=== PATIENT | male | born 1965 | race African-American/Black ===

== ENCOUNTER 2016-11-14 15:41 | Outpatient (CLI) ==
[2015-07-15 16:57] VITALS: BMI 31.9
== END 2016-11-14 15:42 | disposition home or self-care (01) ==
LOC: LAB 15:41
PROVIDERS: ATTEND Emergency Medicine
DX: E11.9 Type 2 diabetes mellitus without complications (principal)
CPT/HCPCS: 36415; 83036

== ENCOUNTER 2017-02-01 14:36 | Outpatient (CLI) ==
[2015-07-15 16:57] VITALS: BMI 31.9
[2017-02-01 15:00] LABS: BASOPHILS # (AUTO) 0.1 K/uL (0-0.2); BASOPHILS % (AUTO) 1.1 % (0.0-3.0); EOSINOPHILS # (AUTO) 0.3 K/ul (0.0-0.7); EOSINOPHILS % (AUTO) 4.4 % (0.0-7.0); HEMATOCRIT 35.5 % (42.0-52.0); HEMOGLOBIN 12.6 g/dl (14.0-18.0); IMMATURE GRANULOCYTE % (AUTO) 0.2 % (0.0-5.0); LYMPHOCYTES # (AUTO) 2.2 K/uL (0.60-3.4); LYMPHOCYTES % (AUTO) 38.1 (10.0-50.0); MEAN CORPUSCULAR HEMOGLOBIN 30.7 pg (27.0-31.0); MEAN CORPUSCULAR HGB CONC 35.5 (31.8-35.4); MEAN CORPUSCULAR VOLUME 86.6 fl (80.0-94.0); MONOCYTES # (AUTO) 0.5 K/uL (0.4-2.0); MONOCYTES % (AUTO) 9.3 (0-10); NEUTROPHILS # (AUTO) 2.7 K/ul (2.0-6.9); NEUTROPHILS % (AUTO) 46.9; PLATELET COUNT 235 10^3/uL (140-440)
[2017-02-01 15:37] LABS: ALBUMIN 3.4 g/dL (3.4-5.0); ALBUMIN/GLOBULIN RATIO 1.03; ANION GAP 12.3; BILIRUBIN,TOTAL 0.25 mg/dL (0.00-1.20); BUN/CREATININE RATIO 7.69; CALCIUM 8.9 mg/dL (8.2-10.2); CREATININE 1.69 mg/dL (0.60-1.10); POTASSIUM 3.3 mmol/L (3.5-5.1); TOTAL PROTEIN 6.7 g/dL (6.4-8.2)
== END 2017-02-01 14:37 | disposition home or self-care (01) ==
LOC: LAB 14:36
PROVIDERS: ATTEND Nurse Practitioner Family
DX: I10 Essential (primary) hypertension (principal); E78.5 Hyperlipidemia, unspecified; E11.9 Type 2 diabetes mellitus without complications; F41.9 Anxiety disorder, unspecified
CPT/HCPCS: 36415; 80053; 80061; 83036; 84443; 85025

== ENCOUNTER 2017-02-07 11:50 | Outpatient (CLI) ==
[2015-07-15 16:57] VITALS: BMI 31.9
== END 2017-02-07 11:51 | disposition home or self-care (01) ==
LOC: LAB 11:50
PROVIDERS: ATTEND Emergency Medicine
DX: E53.8 Deficiency of other specified B group vitamins (principal)
CPT/HCPCS: 36415; 82607

== ENCOUNTER 2017-02-23 15:58 | Outpatient (CLI) ==
[2015-07-15 16:57] VITALS: BMI 31.9
[2017-02-23 16:12] LABS: BILIRUBIN,URINE 1+ (NEGATIVE); KETONES,URINE Trace (NEGATIVE); LEUKOCYTE ESTERASE ,URINE Negative (NEGATIVE); NITRITE,URINE Negative (NEGATIVE); PH,URINE 6.5 (5-9); PROTEIN,URINE 1+ (NEGATIVE); URINE, BLOOD Negative (NEGATIVE)
[2017-02-23 16:41] LABS: ADD URINE MICROSCOPIC YES
[2017-02-24 05:49] LABS: URINE CREATINE 534.5 mg/dL (Not Estab.)
== END 2017-02-23 15:59 | disposition home or self-care (01) ==
LOC: LAB 15:58
PROVIDERS: ATTEND Nurse Practitioner
DX: R30.0 Dysuria (principal)
CPT/HCPCS: 36415; 81001; 82570; 84156; 87086

== ENCOUNTER 2017-05-22 18:41 | Outpatient (CLI) ==
[2015-07-15 16:57] VITALS: BMI 31.9
[2017-05-22 19:22] LABS: BASOPHILS # (AUTO) 0.1 K/uL (0-0.2); BASOPHILS % (AUTO) 0.9 % (0.0-3.0); EOSINOPHILS # (AUTO) 0.4 K/ul (0.0-0.7); EOSINOPHILS % (AUTO) 7.1 % (0.0-7.0); HEMATOCRIT 37.3 % (42.0-52.0); HEMOGLOBIN 13.6 g/dl (14.0-18.0); IMMATURE GRANULOCYTE % (AUTO) 0.4 % (0.0-5.0); LYMPHOCYTES # (AUTO) 2.3 K/uL (0.60-3.4); LYMPHOCYTES % (AUTO) 42.7 (10.0-50.0); MEAN CORPUSCULAR HEMOGLOBIN 31.5 pg (27.0-31.0); MEAN CORPUSCULAR HGB CONC 36.5 (31.8-35.4); MEAN CORPUSCULAR VOLUME 86.3 fl (80.0-94.0); MONOCYTES # (AUTO) 0.5 K/uL (0.4-2.0); NEUTROPHILS # (AUTO) 2.1 K/ul (2.0-6.9); NEUTROPHILS % (AUTO) 38.9; PLATELET COUNT 219 10^3/uL (140-440); RED BLOOD COUNT 4.32 10^6/ul (4.70-6.10); WHITE BLOOD COUNT 5.32 K/ul (4.2-10.2)
[2017-05-22 19:53] LABS: ALBUMIN 3.6 g/dL (3.4-5.0); BILIRUBIN,TOTAL 0.32 mg/dL (0.00-1.20); BUN/CREATININE RATIO 12.5; CALCIUM 9.1 mg/dL (8.2-10.2); CHOL/HDL RATIO 4.4 (4.5-6.4); CREATININE 1.52 mg/dL (0.60-1.10); TOTAL PROTEIN 7.2 g/dL (6.4-8.2)
== END 2017-05-22 18:42 | disposition home or self-care (01) ==
LOC: LAB 18:41
PROVIDERS: ATTEND Emergency Medicine
DX: E78.5 Hyperlipidemia, unspecified (principal); E11.9 Type 2 diabetes mellitus without complications; I10 Essential (primary) hypertension
CPT/HCPCS: 36415; 80053; 80061; 83036; 84443; 85025

== ENCOUNTER 2017-07-30 10:07 | Observation (INO) ==
[2017-07-30 11:05] LABS: BASOPHILS # (AUTO) 0.1 K/uL (0-0.2); EOSINOPHILS # (AUTO) 0.2 K/ul (0.0-0.7); EOSINOPHILS % (AUTO) 3.6 % (0.0-7.0); HEMOGLOBIN 13.6 g/dl (14.0-18.0); IMMATURE GRANULOCYTE % (AUTO) 0.4 % (0.0-5.0); LYMPHOCYTES # (AUTO) 2.3 K/uL (0.60-3.4); LYMPHOCYTES % (AUTO) 46.5 (10.0-50.0); MEAN CORPUSCULAR HEMOGLOBIN 31.5 pg (27.0-31.0); MEAN CORPUSCULAR HGB CONC 36.8 (31.8-35.4); MEAN CORPUSCULAR VOLUME 85.6 fl (80.0-94.0); MONOCYTES # (AUTO) 0.5 K/uL (0.4-2.0); MONOCYTES % (AUTO) 10.6 (0-10); NEUTROPHILS # (AUTO) 1.9 K/ul (2.0-6.9); NEUTROPHILS % (AUTO) 37.9; PLATELET COUNT 232 10^3/uL (140-440); RED BLOOD COUNT 4.32 10^6/ul (4.70-6.10); WHITE BLOOD COUNT 5.01 K/ul (4.2-10.2)
--- NOTE | 2017-07-30 11:22 | DI ---
EXAM: Chest two views HISTORY: Palpitations FINDINGS: Normal cardiac and mediastinal contours. Normal pulmonary vasculature. Lungs are clear. No significant abnormality of the bony thorax. IMPRESSION: Chest radiograph within normal limits.
[2017-07-30 11:40] LABS: ALANINE AMINOTRANSFERASE 27 U/L (12-78); ALBUMIN 3.5 g/dL (3.4-5.0); ALBUMIN/GLOBULIN RATIO 0.95; ALKALINE PHOSPHATASE 58 U/L (50-136); ANION GAP 13.9; ASPARTATE AMINO TRANSFERASE 16 U/L (15-37); BLOOD UREA NITROGEN 24 mg/dL (7-18); BUN/CREATININE RATIO 13.63; CALCIUM 9.1 mg/dL (8.2-10.2); CARBON DIOXIDE 19 mmol/L (21-32); CHLORIDE 109 mmol/L (98-107); CREATINE KINASE 150 U/L; CREATININE 1.76 mg/dL (0.60-1.10); GLUCOSE 90 mg/dL (70-100); POTASSIUM 3.9 mmol/L (3.5-5.1); SODIUM 138 mmol/L (136-145); TOTAL PROTEIN 7.2 g/dL (6.4-8.2)
[2017-07-30 11:42] LABS: CREATINE KINASE MB 0.8 ng/ml (0.0-3.6)
[2017-07-30 12:13] LABS: BILIRUBIN,URINE Negative (NEGATIVE); KETONES,URINE Negative (NEGATIVE); LEUKOCYTE ESTERASE ,URINE Negative (NEGATIVE); NITRITE,URINE Negative (NEGATIVE); PH,URINE 5.5 (5-9); PROTEIN,URINE Negative (NEGATIVE); URINE, BLOOD Negative (NEGATIVE)
[2017-07-30 12:14] LABS: ADD URINE MICROSCOPIC NO
--- NOTE | 2017-07-30 12:19 | ED.PDOC ---
General ED Provider: Dr. MARY ALICE DUMONT Chief Complaint: Chest Pain Stated Complaint: chest pain Time Seen by Physician: 10:11 (seen with unruly at all times ) Information Source: Patient Exam Limitations: No limitations [facility] and Triage Documentation Reviewed and Agree: Yes Cardiovascular Complaint Exam - Palpitations Complaint/Exam Onset/Duration: 2 days Symptoms Are: Resolved Timing: Intermittent Initial Severity: Moderate Current Severity: None Character: Reports: Irregular, Pounding, Skipped beats Aggravating: Reports: Rest Alleviating: Reports: Exertion, Rest Associated Signs and Symptoms: Denies: Lightheadedness, Dizziness, Syncope, Chest pain, Shortness of breath, Diaphoresis, Nausea, Vomiting Related History: Similar episode Related Surgical History: Reports: Cardiac Cath, PTCA/Stent Cardiac Risk Factors: Reports: Hypertension, Diabetes, Elevated lipids, CAD Pulmonary Embolism Risk Factors: Reports: Bedrest Atrial Fibrillation Risk Factors: Reports: Hypertension, CAD. Denies: Mitral Valve Disease, COPD, Pulmonary Embolism, Hypothyroidism, Alcohol abuse, WPW Syndrome Thyroid Exam: Normal Differential Diagnoses: CAD, COPD, Hypokalemia, Paroxysmal SVT Quality Indicators for AMI: EKG in 10min. Quality Indicators for Cardiac Chest Pain: EKG in 10min. Quality Indicator For Non-Traumatic Chest Pain/Syncope: EKG Performed Review of Systems - Review Of Systems Constitutional: Reports: No symptoms Eyes: Reports: No symptoms Ears, Nose, Mouth, Throat: Reports: No symptoms Respiratory: Reports: No symptoms Cardiac: Reports: Chest pain, Palpitations GI: Reports: No symptoms : Reports: No symptoms Musculoskeletal: Reports: No symptoms Skin: Reports: No symptoms Neurological: Reports: No symptoms Endocrine: Reports: No symptoms Hematologic/Lymphatic: Reports: No symptoms All Other Systems: Reviewed and Negative Past Medical History - Past Medical History Previously Healthy: No Endocrine: Reports: DM 2, Dyslipidemia Cardiovascular: Reports: Hypertension Respiratory: Reports: Asthma Hematological: Reports: None Gastrointestinal: Reports: None Genitourinary: Reports: None Neuro/Psych: Reports: Migraine Musculoskeletal: Reports: None Cancer: Reports: None Other Pertinent Past Medical History: htn dm chol asth migr - Surgical History General Surgical History: Reports: Other (laryngeal polypecxtomy yesterday) - Family History Family History: Reports: Unknown - Social History Smoking Status: Former smoker Hx Substance Use: No Alcohol Screening: None Physical Exam - Physical Exam Appearance: Well-appearing, No pain distress, Well-nourished Eyes: TREY, EOMI, Conjunctiva clear ENT: Ears normal, Nose normal, Oropharynx normal Respiratory: Airway patent, Breath sounds clear, Breath sounds equal, Respirations nonlabored Cardiovascular: RRR, Pulses normal, No rub, No murmur GI/: Soft, Nontender, No masses, Bowel sounds normal, No Organomegaly Musculoskeletal: Normal strength, ROM intact, No edema, No calf tenderness Skin: Warm, Dry, Normal color Neurological: Sensation intact, Motor intact, Reflexes intact, Cranial nerves intact, Alert, Oriented Psychiatric: Affect appropriate, Mood appropriate Interpretation - Radiology Interpretation Radiology Interpretation By: Radiologist Radiology Results: No acute changes - [place] Rate: Normal Rhythm: Sinus Ectopy: None - EKG Interpretation Rate: Normal Rhythm: Sinus Ectopy: None [place]: NL ST Segment: Normal Physician Notification - Case Discussed Physician Notified: pmd Time of Notification: 12:20 Admit To: Inpatient Critical Care Note - Critical Care Note Total Time (mins): 0 Course - Course Hematology/Chemistry: 07/30/17 10:55 07/30/17 10:55 Orders, Labs, Meds: Lab Review 07/30/17 07/30/17 07/30/17 10:55 10:55 12:05 WBC 5.01 RBC 4.32 L Hgb 13.6 L Hct 37.0 L MCV 85.6 MCH 31.5 H MCHC 36.8 H RDW Coeff of Suraj 12.7 Plt Count 232 Immature Gran % (Auto) 0.4 Neut % (Auto) 37.9 Lymph % (Auto) 46.5 [place] % (Auto) 10.6 H Eos % (Auto) 3.6 Baso % (Auto) 1.0 Immature Gran # (Auto) 0.0 Neut # 1.9 L Lymph # 2.3 [place] # 0.5 Eos # 0.2 Baso # 0.1 Sodium 138 Potassium 3.9 Chloride 109 H Carbon Dioxide 19 L Anion Gap 13.9 BUN 24 H Creatinine 1.76 H Estimated GFR (MDRD) 50.00 BUN/Creatinine Ratio 13.63 Glucose 90 Calcium 9.1 Total Bilirubin 0.40 AST 16 ALT 27 Alkaline Phosphatase 58 Total Creatine Kinase 150 CK-MB (CK-2) 0.8 CK-MB (CK-2) % 0.36810 Troponin I < 0.0100 Total Protein 7.2 Albumin 3.5 Globulin 3.7 Albumin/Globulin Ratio 0.95 Urine Color Yellow Urine Clarity Clear Urine pH 5.5 Ur Specific [place] 1.020 Urine Protein Negative Urine Glucose (UA) Negative Urine Ketones Negative Urine Blood Negative Urine Nitrite Negative Urine Bilirubin Negative Urine Urobilinogen 0.2 Ur Leukocyte Esterase Negative Orders Category Date Time Status EKG-(ED ONLY) Stat CARDIO 07/30/17 10:38 Completed CBC W/ AUTO DIFF Stat LAB 07/30/17 10:55 Completed COMPREHENSIVE METABOLIC PANEL Stat LAB 07/30/17 10:55 Completed CREATINE KINASE Stat LAB 07/30/17 10:55 Completed TROPONIN I Stat LAB 07/30/17 10:55 Completed URINALYSIS C & S IF INDICATED Stat LAB 07/30/17 12:05 Completed CHEST, 2 VIEWS PA & LAT Stat RADS 07/30/17 10:38 Completed Vital Signs: Temp Pulse Resp BP Pulse Ox 07/30/17 10:11 96.8 F L 73 20 114/79 97 CLIFF Risk Score CLIFF Risk Score: Risk Score Odds of by 30D 0 0.1 (0.1-0.2) 1 0.3 (0.2-0.3) 2 0.4 (0.3-0.5) 3 0.7 (0.6-0.9) 4 1.2 (1.0-1.5) 5 2.2 (1.9-2.6) 6 3.0 (2.5-3.6) 7 4.8 (3.8-6.1) Departure - Departure Time of Disposition: 12:20 Disposition: ADMITTED INPATIENT Discharge Problem: Chest pain, Palpitations Instructions: Chest Pain (ED) Condition: Good Pt referred to PMD for follow-up: Yes Additional Instructions: Please call your Family Physician as soon as possible to schedule a follow-up appointment. Allergies/Adverse Reactions: Allergies lactose Allergy (Verified 07/30/17 10:17) Penicillins Adverse Reaction (Verified 07/30/17 10:17) Home Medications: Ambulatory Orders Alprazolam 1 mg PO QID 08/19/13 Ondansetron HCl [Zofran] 8 mg PO PRN PRN 08/19/13 Propranolol HCl 80 mg PO BID 08/19/13 Tramadol HCl [Ultram] 50 mg PO Q4H PRN 08/19/13 Sumatriptan Succinate [Imitrex] 100 mg PO PRN 03/22/16 Sodium Bicarbonate 325 mg PO BID #60 tab-cap 06/06/16 Topiramate [Topamax] 200 mg PO BID 06/14/16 Alprazolam [Xanax] 1 mg PO QID #120 08/03/16 Bupropion HCl [Wellbutrin Sr] 150 mg PO BID #60 08/03/16 Buspirone HCl 30 mg PO BID #60 08/03/16 Thiothixene 2 mg PO BID #90 08/03/16 Trazodone HCl 150 mg PO BEDTIME #30 08/03/16 Tamsulosin HCl 0.4 mg PO BEDTIME 05/22/17 Hydrochlorothiazide 12.5 mg PO DAILY 07/30/17 Disposition Discussed With: Patient
[2017-07-30] MEDS ORDERED: SODIUM CHLORIDE 1,000 ML IV SCH ×2 (12:30→14:00)
[2017-07-30] MEDS ORDERED: SODIUM CHLORIDE 0.9%-KCL 20 MEQ 1,000 ML IV SCH (12:30)
[2017-07-30] MEDS ORDERED: NON-FORMULARY MEDICATION (Alprazolam [Xanax] 1 MG) PO SCH ×22 (13:00)
[2017-07-30] MEDS ORDERED: NON-FORMULARY MEDICATION (Alprazolam [Alprazolam] 1 MG) PO SCH ×22 (13:00)
[2017-07-30 13:27] VITALS: BMI 32.4
[2017-07-30] MEDS: XANAX PO SCH ×3 (14:50→20:40)
[2017-07-30] MEDS: COMBIVENT RESPIMAT INHAL SPRAY IH SCH ×3 (14:51→20:41)
[2017-07-30] MEDS ORDERED: ULTRAM PO PRN (16:07)
[2017-07-30] MEDS ORDERED: NON-FORMULARY MEDICATION (Ondansetron Hcl [Zofran] 8 MG) PO PRN (16:07)
[2017-07-30] MEDS ORDERED: NON-FORMULARY MEDICATION (Sumatriptan Succinate [Imitrex] 100 MG) PO SCH (16:15)
[2017-07-30] MEDS ORDERED: RANITIDINE HCL PO SCH (17:00)
[2017-07-30] MEDS: ZANTAC PO SCH (17:39)
[2017-07-30 19:12] LABS: TROPONIN I 0.01 ng/ml (0.0000-0.4000)
[2017-07-30 19:13] LABS: CREATINE KINASE MB 0.8 ng/ml (0.0-3.6)
[2017-07-30] MEDS: INDERAL PO SCH (20:39)
[2017-07-30] MEDS: TOPAMAX PO SCH (20:39)
[2017-07-30] MEDS: BUSPAR PO SCH (20:40)
[2017-07-30] MEDS: VASOTEC PO SCH (20:40)
[2017-07-30] MEDS: SODIUM BICARBONATE PO SCH (20:40)
[2017-07-30] MEDS: WELLBUTRIN SR PO SCH (20:41)
[2017-07-30] MEDS: THIOTHIXENE 2 MG PO SCH (20:46)
[2017-07-30] MEDS ORDERED: NON-FORMULARY MEDICATION (Trazodone Hcl [Trazodone Hcl] 150 MG) PO SCH ×22 (21:00)
[2017-07-30] MEDS ORDERED: SODIUM BICARBONATE 325 MG PO SCH (21:00)
[2017-07-30] MEDS ORDERED: FLOMAX PO SCH (21:00)
[2017-07-30] MEDS ORDERED: BUSPIRONE HCL 30 MG PO SCH (21:00)
[2017-07-30] MEDS ORDERED: DESYREL PO SCH (21:00)
[2017-07-30] MEDS ORDERED: PROPRANOLOL HCL 80 MG PO SCH (21:00)
[2017-07-30] MEDS ORDERED: TOPIRAMATE 200 MG PO SCH (21:00)
[2017-07-30] MEDS ORDERED: ENALAPRIL MALEATE 10 MG PO SCH ×22 (21:00)
[2017-07-31 02:34] LABS: BASOPHILS # (AUTO) 0.1 K/uL (0-0.2); BASOPHILS % (AUTO) 1.1 % (0.0-3.0); EOSINOPHILS # (AUTO) 0.2 K/ul (0.0-0.7); EOSINOPHILS % (AUTO) 3.4 % (0.0-7.0); HEMATOCRIT 34.5 % (42.0-52.0); HEMOGLOBIN 12.5 g/dl (14.0-18.0); IMMATURE GRANULOCYTE % (AUTO) 0.2 % (0.0-5.0); LYMPHOCYTES # (AUTO) 2.8 K/uL (0.60-3.4); LYMPHOCYTES % (AUTO) 53.1 (10.0-50.0); MEAN CORPUSCULAR HEMOGLOBIN 30.9 pg (27.0-31.0); MEAN CORPUSCULAR HGB CONC 36.2 (31.8-35.4); MEAN CORPUSCULAR VOLUME 85.4 fl (80.0-94.0); MONOCYTES # (AUTO) 0.6 K/uL (0.4-2.0); MONOCYTES % (AUTO) 10.5 (0-10); NEUTROPHILS # (AUTO) 1.7 K/ul (2.0-6.9); NEUTROPHILS % (AUTO) 31.7; PLATELET COUNT 193 10^3/uL (140-440); RED BLOOD COUNT 4.04 10^6/ul (4.70-6.10); WHITE BLOOD COUNT 5.25 K/ul (4.2-10.2)
[2017-07-31 02:54] LABS: ALBUMIN 3.1 g/dL (3.4-5.0); ANION GAP 11.1; BILIRUBIN,TOTAL 0.4 mg/dL (0.00-1.20); BUN/CREATININE RATIO 13.6; CALCIUM 9.1 mg/dL (8.2-10.2); CHOL/HDL RATIO 7.9 (4.5-6.4); CREATININE 1.47 mg/dL (0.60-1.10); POTASSIUM 4.1 mmol/L (3.5-5.1); TOTAL PROTEIN 6.2 g/dL (6.4-8.2)
[2017-07-31 03:10] LABS: TROPONIN I 0.021 ng/ml (0.0000-0.4000)
[2017-07-31 03:11] LABS: CREATINE KINASE MB 0.8 ng/ml (0.0-3.6)
[2017-07-31] MEDS: ZANTAC PO SCH (05:47)
[2017-07-31] MEDS: BUSPAR PO SCH (08:50)
[2017-07-31] MEDS: VASOTEC PO SCH (08:50)
[2017-07-31] MEDS: TOPAMAX PO SCH (08:51)
[2017-07-31] MEDS: INDERAL PO SCH (08:51)
[2017-07-31] MEDS: WELLBUTRIN SR PO SCH (08:51)
[2017-07-31] MEDS: SODIUM BICARBONATE PO SCH (08:52)
[2017-07-31] MEDS: XANAX PO SCH ×2 (08:52→12:10)
[2017-07-31] MEDS: THIOTHIXENE 2 MG PO SCH (08:56)
[2017-07-31] MEDS: COMBIVENT RESPIMAT INHAL SPRAY IH SCH ×2 (08:57→12:11)
[2017-07-31] MEDS ORDERED: BENTYL PO SCH (09:00)
[2017-07-31] MEDS ORDERED: NON-FORMULARY MEDICATION (Hydrochlorothiazide [Hydrochlorothiazide] 12.5 MG) PO SCH ×22 (09:00)
[2017-07-31] MEDS ORDERED: HYDROCHLOROTHIAZIDE PO SCH (09:00)
[2017-07-31] MEDS ORDERED: NON-FORMULARY MEDICATION (Atorvastatin Calcium [Lipitor] 40 MG) PO SCH ×22 (09:00)
[2017-07-31] MEDS ORDERED: LIPITOR PO SCH (09:00)
[2017-07-31 13:16] VITALS: BP 100/68; TEMP 98
--- NOTE | 2017-07-31 15:06 | CONS ---
DATE OF CONSULTATION: 07/31/17 REASON FOR CONSULTATION/HISTORY OF PRESENT ILLNESS: This is a patient of Dr. 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 He does have some mental illness; schizophrenia. He is non-compliant with his medications and followup. He has a long history of dyslipidemia, hyperglycemia, obesity. He presented to the emergency room stating that he was experiencing chest pain on 07/30/17 and he was subsequently admitted by Dr. Barger and we were consulted. REVIEW OF SYSTEMS: CONSTITUTIONAL: No night sweats. No fatigue, malaise, lethargy. No fever or chills. HEENT: Eyes: No visual changes. No eye pain. No eye discharge. ENT: No sinus drainage. No epistaxis. No sinus pain. No sore throat. No odynophagia. No ear pain. No congestion. RESPIRATORY: Chronic cough, no congestion. No hemoptysis. Mild shortness of breath. CARDIOVASCULAR: No angina symptoms. No CHF symptoms. No atypical chest pain for CAD. No palpitations. No orthopnea. Chest pain. GASTROINTESTINAL: No abdominal pain. No nausea or vomiting. No diarrhea or constipation. No hematemesis. No hematochezia. GENITOURINARY: No urgency. No frequency. No dysuria. No hematuria. No obstructive symptoms. No discharge. No pain. No significant abnormal bleeding. MUSCULOSKELETAL: No musculoskeletal pain. No joint swelling. NEUROLOGICAL: No headache. No neck pain. No syncope. No seizures. No dizziness. Alert and oriented. PSYCHIATRIC: Anxious. No depression. No suicidal thoughts. No homicidal thoughts. SKIN: No rash. No lesions. No wounds. ENDOCRINE: No unexplained weight loss. No weight gain. HEMATOLOGIC/LYMPHATIC: No anemia. No purpura. No petechiae. No prolonged or excessive bleeding. No palpable lymph nodes. MEDICATIONS: Xanax 1mg four times a day Zofran 8mg PRN Inderal 80mg twice a day Tramadol 50mg Q 4 hours PRN Imitrex 100mg PRN Combivent Respimat inhaler 20mcg one four times a day Sodium Bicarb 325mg twice a day Topamax 200mg twice a day Wellbutrin 150mg twice a day Buspar 30mg twice a day Thiothixene 2mg twice a day Trazodone 150mg at bedtime Bentyl 10mg daily Enalapril 10mg twice a day Lipitor 40mg daily Flomax 0.4mg daily Zantac 150mg twice a day Hydrochlorothiazide 12.5mg PO daily ALLERGIES: Lactose Penicillins PAST MEDICAL HISTORY: Migraine History of TIA Diabetes Mellitus type 2 History of suicidal ideations Anxiety Depression Dyslipidemia Chronic bronchitis Hypertension Asthma History of CVA Irritable bowel syndrome PAST SURGICAL HISTORY: None SOCIAL/PERSONAL/FAMILY HISTORY: The patient was never smoker, denies any alcohol or illicit drug use. The patient does have a history of mental illness and previously saw Dr. Peterson. Family history: Mother and father both with dyslipidemia and diabetes mellitus type 2. PHYSICAL EXAMINATION: VITAL SIGNS: Temperature 97.3, heart rate 53, respirations 20, blood pressure 92 /60 and pulse ox 98%.Telemetry shows normal sinus rhythm with occasional bradycardiac. HEENT: Head normocephalic, atraumatic. Eyes: Extraocular muscles are intact. Pupils are equal, round and reactive to light and accommodation. Ears: No lesions. Nose appeared normal. Throat: No exudate or erythema. NECK: Supple. No JVD, no carotid bruit. No lymphadenopathy or thyromegaly. LUNGS: Clear with diminished breath sounds bilaterally, equal. Percussion note normal. Chest symmetrical. HEART: S1, S2, no S3. No murmurs. No cyanosis or clubbing. No ascites. Pulses: Dorsalis pedis and posterior tibial pulses +1 to +2 both sides. ABDOMEN: Soft. Nontender. Bowel sounds active times four quadrants. No CVA tenderness. No mass felt. EXTREMITIES: Trace edema in both feet. Full range of motion of all extremities , equal. Negative Homans sign. NEUROLOGIC: No focal deficit. Cranial nerves II through XII are grossly intact. No headache, no double vision or headache. The patient is normal, mildly anxious. SKIN: Not dry. Intact. Turgor - normal. LYMPHATIC: No palpable lymph nodes/no lymphedema. MUSCULOSKELETAL: Normal joints with no swelling. Muscle tone is normal. ASSESSMENT: 1. Chest pain 2. Dyslipidemia 3. Diabetes Mellitus type 2 4. Hypertension 5. Obesity 6. Chronic kidney disease stage 2 RECOMMENDATIONS: 1. Lipid panel 2. T4 TSH 3. A1c 4. Will do stress echo and echo tomorrow by Dr. Augustin 5. Continue routine telemetry 6. Medication adherence and compliance discussed and encouraged as dyslipidemia is severe with non HDL 283. Will follow closely for this consult. DOROTHY
--- NOTE | 2017-08-01 07:06 | ECHO2D ---
Date of Exam: 07/31/17 Ordering Physician: UMA GUSMAN Room #: [id number] Reason for Echo: CHEST PAIN, CVA 2000, HTN M-Mode Normal Adult Results LV Dimensions Normal Adult Results AoV Opening excursions >1.6 >1.6 LVEDD-base- 3.5-5.8 3.6 Ao root dimensions 2.0-3.7 4.1 LVESD-base- 3.1-4.6 L. Atrium dimensions 1.9-3.8 4.6 Post. Wall thickness 0.8-1.1 1.2 IV septum (thickness) 0.7-1.2 1.2 Post. Wall excursion 0.72-1.3 NORMAL Septal motion NORMAL Systolic motion R. Ventricular cavity 1.5-2.0 NORMAL LVEF 60% 67% Paradoxical septal wall motion NORMAL 2-D : ENLARGED LEFT ATRIAL CAVITY--NORMAL VALVES, NO EFFUSION, NO THROMBUS, NORMAL LEFT VENTRICLE SIZE M-MODE: MV: NORMAL AV: NORMAL TV: NORMAL PV: CHAMBER SIZE: ENLARGED LEFT ATRIAL CAVITY: DILATED AORTIC ROOT WALL MOTION: NORMAL PERICARDIUM: NORMAL INTERPRETATION: 1. BORDERLINE LEFT VENTRICULAR HYPERTROPHY WITH ENLARGED LEFT ATRIAL CAVITY 2. NORMAL LEFT VENTRICLE CONTRACTILITY 3. NORMAL VALVES 4. DILATED AORTIC ROOT MTDD
--- NOTE | 2017-08-01 07:09 | ECHOSTRESS ---
Date of Exam: 07/31/17 Ordering Physician: UMA GUSMAN Reason for Echo: CHEST PAIN, CVA 1999, STRESS TEST--NO ISCHEMIA, HTN M-Mode Normal Adult Results LV Dimensions Normal Adult Results AoV Opening excursions >1.6 LVEDD-base- 3.5-5.8 Ao root dimensions 2.0-3.7 LVESD-base- 3.1-4.6 L. Atrium dimensions 1.9-3.8 Post. Wall thickness 0.8-1.1 IV septum (thickness) 0.7-1.2 Post. Wall excursion 0.72-1.3 Septal motion Systolic motion R. Ventricular cavity 1.5-2.0 LVEF 60% Paradoxical septal wall motion 2-D: NORMAL LEFT VENTRICULAR CONTRACTILITY--RESTING AND POST EXERCISE M-MODE: MV: AV: TV: PV: CHAMBER SIZE: WALL MOTION: NORMAL LEFT VENTRICULAR CONTRACTILITY--RESTING AND POST EXERCISE PERICARDIUM: INTERPRETATION: 1. NORMAL LEFT VENTRICULAR CONTRACTILITY--RESTING AND POST EXERCISE MTDD
--- NOTE | 2017-08-01 07:17 | STRESSECHO ---
Date of Test: 07/31/17 Reason for Exam: CHEST PAIN, HTN, CVA 1999, Ordering Physician: UMA LANE Current Medications: TOPAMAX, WELLBUTRIN, BENTYL, ENALAPRIL, LIPITOR, TAMSULOSIN Physical Findings: S1, S2, NO S3 Resting EKG: SINUS RHYTHM/ NO ACUTE CHANGES Target Heart Rate: 144/170 STAGE MPH/GRADE HEART RATE BPM BLOOD PRESSURE mmhg RHYTHM S-T SEGMENT +/- UP DOWN SYMPTOMS,COMMENTS At Rest 60 108/76 SR X NONE 1 1.7/10% 110 136/70 SR X NONE 2 2.5/12% 3 3.4/14% 4 4.2/16% 5 5.0/18% Immediately after 127 SR X FATIGUE Durations of Exercise: 4:16 Maximum Heart Rate Reached: 127 Reason for Termination: FATIGUE 5 MINUTES POST EXERCISE: HR 74 BPM, BP 136/90 MMHG, SR, +/- INTERPRETATION: 97% OXYGEN SATURATION WITH EXERCISE ON ROOM AIR METS 7.0 1. NO EVIDENCE OF ISCHEMIA FROM HEART RATE 60 BPM TO 127 BPM 2. LEVEL OF EXERCISE--METS 7.0--ACCEPTABLE 3. NO CHEST PAIN OR CHEST DISCOMFORT 4. NO ARRHYTHMIAS 5. BLOOD PRESSURE RESPONSE NORMAL NORMAL LEFT VENTRICULAR CONTRACTILITY--RESTING AND POST EXERCISE MTDD
--- NOTE | 2017-08-01 14:42 | SSS ---
DATE OF SERVICE: 07/31/17 CHIEF COMPLAINT/HISTORY OF PRESENT ILLNESS: Chest pain with sternal tightness, been going on for a couple of days, gradually getting worse. The patient describes as if someone is squeezing the heart. Not short of breath, no radiation or associated with shortness of breath. No palpitations. At that time, the patient came to the emergency room, seen by Dr. Culp in the emergency room. Because of age and chest pain, the patient was admitted to observation to rule out acute coronary syndrome. REVIEW OF SYSTEMS: CONSTITUTIONAL: No night sweats. No fatigue, malaise, lethargy. No fever or chills. HEENT: Eyes: No visual changes. No eye pain. No eye discharge. ENT: No runny nose. No epistaxis. No sinus pain. No sore throat. No odynophagia. No ear pain. No congestion. RESPIRATORY: No cough, no congestion. No hemoptysis. No shortness of breath. CARDIOVASCULAR: No angina symptoms. No CHF symptoms. Chest pain and tightness. No palpitations. No orthopnea. GASTROINTESTINAL: No abdominal pain. No nausea or vomiting. No diarrhea or constipation. No hematemesis. No hematochezia. GENITOURINARY: No dysuria. No hematuria. No obstructive symptoms. No discharge. No pain. No significant abnormal bleeding. MUSCULOSKELETAL: No musculoskeletal pain. No joint swelling. NEUROLOGICAL: Awake, alert, oriented to time, place and person. No headache. No neck pain. No syncope. No seizures. No dizziness. PSYCHIATRIC: Not anxious. No depression. No suicidal thoughts. No homicidal thoughts. SKIN: No rash. No lesions. No wounds. ENDOCRINE: No unexplained weight loss. No weight gain. HEMATOLOGIC/LYMPHATIC: No anemia. No purpura. No petechiae. No prolonged or excessive bleeding. No palpable lymph nodes. PAST MEDICAL HISTORY: Hypertension Dyslipidemia History of TIA 2000 History of migraine Asthmatic bronchitis Chronic kidney disease Hypothyroidism Depression/anxiety Nicotine use PAST SURGICAL HISTORY: Two nodules removed in the throat PERSONAL/FAMILY HISTORY/SOCIAL HISTORY: Does not smoke or drink alcohol. No ilicit drug use. Family History: Significant for high blood pressure. PHYSICAL EXAMINATION: VITAL SIGNS: BP 102/78, respiratory rate 20, heart rate 67, temperature 97.9, saturation 98 on room air. HEENT: Head normocephalic, atraumatic. Eyes: Extraocular muscles are intact. Pupils are equal, round and reactive to light and accommodation. Ears: No lesions. Nose appeared normal. Throat: No exudate or erythema. NECK: Supple. No JVD, no carotid bruit. No lymphadenopathy or thyromegaly. LUNGS: Clear to auscultation. Percussion note normal. Chest symmetrical. HEART: S1, S2, no S3. No murmurs. No cyanosis or clubbing. No ascites. Pulses: Dorsalis pedis and posterior tibial pulses +1 to +2 both sides. ABDOMEN: Soft. Nontender. Bowel sounds active. No CVA tenderness. No mass felt. EXTREMITIES: No edema. Full range of motion of all extremities, equal. NEUROLOGIC: No focal deficit. Cranial nerves II through XII are grossly intact. No headache, no double vision or headache. SKIN: Not dry. Intact. Turgor - normal. LYMPHATIC: No palpable lymph nodes/no lymphedema. MUSCULOSKELETAL: Normal joints with no swelling. Muscle tone is normal. Old/present records reviewed Office records reviewed. ALLERGIES: LACTOSE AND PENICILLIN MEDICATIONS: (HOME) Zofran Xanax Ultram Propranolol Sumatriptin Duonebs Sodium Bicarbonate Topamax Buspar Wellbutrin Trazodone Thiothixene Dicyclomine Enalapril Atorvastatin Tamsulosin Ranitidine Hydrochlorothiazide LABS/EKG'S/X-RAY/ECHO/ABG: Sodium 138, potassium 4.1, chloride 112, bicarb 19, BUN 20, creatinine 1.47. White count 5.25, hemoglobin 12.5, hematocrit 34.5, platelet count 193. A1C 4.5. Total cholesterol 324, triglycerides 102, LDL 263. PROGRESS NOTES: See EMR. BRIEF HOSPITAL COURSE: The patient was admitted to the hospital. Three sets of cardiac enzymes are negative. Consultation requested by cardiology with Dr. Augustin. He did the exercise stress test and stress echo, results were negative. At that time, the patient was discharged home. DIAGNOSES: 1. CHEST PAIN, NONCARDIAC 2. HISTORY OF HYPERTENSION 3. DYSLIPIDEMIA 4. OSTEOARTHRITIS 5. DJD SPINE 6. DEPRESSION/ANXIETY DISORDER 7. BIPOLAR DISORDER RECOMMENDATIONS/PLAN: 1. Lifestyle modification, weight loss. 2. Increase cholesterol medication 3. Fall precaution 4. Will followup with the patient in the office within one week TIME SPENT: More than 65 minutes today. JUDAHD
--- NOTE | 2017-08-02 13:50 | PN ---
DATE OF SERVICE: 07/31/17 SUBJECTIVE: The patient was admitted with the chest pain, no more chest pain since admission. Cholesterol panel did show total cholesterol 324. The patient is on the Lipitor 20mg twice a day. A1c was 4.5. GFR is 50 and 61 with baseline creatinine is 7.76 otherwise the patient just came from the stress test, exercise stress. REVIEW OF SYSTEMS: CONSTITUTIONAL: No fever, no chills. HEENT: Normal. ENDOCRINE: No weight gain, no weight loss. CVS: No angina symptoms. No CHF symptoms. No palpitations. No atypical chest pain for CAD. No shortness of breath. No PND, no orthopnea. RESPIRATORY: No cough, no hemoptysis. GI: No nausea, no vomiting. No abdominal pain. : No hematuria. No polyuria. MUSCULOSKELETAL:. No joint swelling. PSYCHIATRIC: Not anxious. No depression. No suicidal thoughts. No homicidal thoughts. SKIN: Intact. No rash. PHYSICAL EXAMINATION: V/S: Blood pressure 119/66, respiratory rate 19, heart rate 64 and temperature 98.1 with saturation 97%. HEENT: Normocephalic, atraumatic. Mucosa dry. NECK: Supple. No JVD, no carotid bruit. No lymphadenopathy. LUNGS: Clear to auscultation. No rales or rhonchi. HEART: S1, S2 normal. No S3. No murmur, gallop or regurgitation. ABDOMEN: Soft, nontender. Bowel sounds active. No rigidity. No rebound or guarding. No CVA tenderness. EXTREMITIES: No clubbing, cyanosis or pedal edema. MUSCULOSKELETAL: No joint swelling. NEUROLOGIC: Awake, alert, oriented times three. No focal deficit. LYMPHATIC: No lymph nodes palpable. SKIN: Intact. LABS: Sodium 138, potassium 4.1, chloride 112, bicarb 19, BUN 20, creatinine 1.47, A1c 4.5, total cholesterol is 324, triglyceride 102, HDL is 41, TSH 1.601. ASSESSMENT: 1. Chest pain, noncardiac 2. Hypertension 3 Dyslipidemia 4. Diabetes, controlled 5. Depression 6. Anxiety 7. Chronic kidney disease 8. Osteoarthritis 9. DJD spine PLAN: 1. Discharge the patient home 2. Lifestyle modification weight loss, diet control 3. Change the medications. Atorvastatin 40mg PO daily, continue the same. Advised to go ahead with the medication. 4. Follow up at the [facility] in 5-7 days TIME SPENT: More than 55 minutes DOROTHY
--- NOTE | 2017-08-02 14:46 | PN ---
DATE OF SERVICE: 07/30/17 CHIEF COMPLAINT: Chest pain SUBJECTIVE: This is a 51 year old male with a previous history of hypertension, bipolar, schizophrenia and dyslipidemia came to the emergency room. He has been hurting in the middle of the chest tightness for almost one week. Gradually the pain is getting worse. He thinks like someone was squeezing in the chest but does not radiate. No aggravating or alleviating factors as the pain is getting worse he came to the emergency room for the evaluation. He was seen by Dr. Culp in the emergency room. EKG was normal and cardiac enzymes were negative. because of the type of chest pain and the family history the patient was admitted to the hospital to rule out acute coronary syndrome. REVIEW OF SYSTEMS: CONSTITUTIONAL: No fever, no chills. HEENT: Normal. ENDOCRINE: No weight gain, no weight loss. CVS: No angina symptoms. No CHF symptoms. No palpitations. Chest pain. Chest tightness. Some shortness of breath. No PND, no orthopnea. RESPIRATORY: No cough, no hemoptysis. GI: No nausea, no vomiting. No abdominal pain. : No hematuria. No polyuria. MUSCULOSKELETAL:. No joint swelling. PSYCHIATRIC: Not anxious. No depression. No suicidal thoughts. No homicidal thoughts. SKIN: Intact. No rash. PHYSICAL EXAMINATION: V/S: Blood pressure 114/79, respiratory rate 20, heart rate 73 and temperature 96.8. HEENT: Normocephalic, atraumatic. Mucosa dry. NECK: Supple. No JVD, no carotid bruit. No lymphadenopathy. LUNGS: Clear to auscultation. No rales or rhonchi. HEART: S1, S2 normal. No S3. No murmur, gallop or regurgitation. ABDOMEN: Soft, nontender. Bowel sounds active. No rigidity. No rebound or guarding. No CVA tenderness. EXTREMITIES: No clubbing, cyanosis or pedal edema. MUSCULOSKELETAL: No joint swelling. NEUROLOGIC: Awake, alert, oriented times three. No focal deficit. LYMPHATIC: No lymph nodes palpable. SKIN: Intact. LABS: Sodium 139, potassium 3.9, chloride 109, bicarb 19, BUN 24, creatinine 1.76, glucose 90 and first set of cardiac enzymes were negative. WBC 5.01, hgb 13.6, hct 37.0, plt count 232, urine is negative. ASSESSMENT: 1. Chest pain rule out ACS 2. History of hypertension 3. Dyslipidemia 4. Migraine headache 5. Asthmatic bronchitis 6. Irritable bowel syndrome 7. Depression 8. Anxiety 9. Schizophrenia 10.Chronic kidney disease PLAN: 1. Admit the patient to observation 2. CBC and CMP today and daily 3. Cardiac enzymes and troponin 4. Cardiology consultation with Dr. Augustin 5. TSH, Lipids and A1c 6. Aspirin Will follow the patient in daily rounds. TIME SPENT: More than 55 minutes MTDD
== END 2017-07-31 14:50 | disposition home or self-care (01) ==
LOC: ED 10:07 → MEDSURG A 12:34
PROVIDERS: ADMIT Emergency Medicine; ATTEND Emergency Medicine
DX: R07.89 Other chest pain (principal); R00.2 Palpitations; I10 Essential (primary) hypertension; I12.9 Hypertensive chronic kidney disease with stage 1 through stage 4 chronic kidney disease, or unspecified chronic kidney disease; E11.22 Type 2 diabetes mellitus with diabetic chronic kidney disease; N18.2 Chronic kidney disease, stage 2 (mild); F20.9 Schizophrenia, unspecified; F31.9 Bipolar disorder, unspecified; F41.8 Other specified anxiety disorders; E78.5 Hyperlipidemia, unspecified; G43.919 Migraine, unspecified, intractable, without status migrainosus; J45.909 Unspecified asthma, uncomplicated; K58.9 Irritable bowel syndrome, unspecified; M19.90 Unspecified osteoarthritis, unspecified site; M47.9 Spondylosis, unspecified; E66.9 Obesity, unspecified; Z91.14 Patient's other noncompliance with medication regimen; Z86.73 Personal history of transient ischemic attack (TIA), and cerebral infarction without residual deficits; Z79.899 Other long term (current) drug therapy
CPT/HCPCS: 36415; 80053; 80061; 81001; 82550; 82553; 83036; 84439; 84443; 84484; 85025; 93005; 93010

== ENCOUNTER 2017-12-24 09:36 | Outpatient (CLI) | END 2017-12-24 09:37 | disposition home or self-care (01) | LOC: LAB 09:36 | PROVIDERS: ATTEND Emergency Medicine | DX: E78.5 Hyperlipidemia, unspecified (principal); E11.9 Type 2 diabetes mellitus without complications; I10 Essential (primary) hypertension; Z12.5 Encounter for screening for malignant neoplasm of prostate | CPT/HCPCS: 36415; 80053; 80061; 83036; 84443; 85025 ==

== ENCOUNTER 2018-01-09 14:15 | Outpatient (CLI) | END 2018-01-09 14:16 | disposition home or self-care (01) | LOC: LAB 14:15 | PROVIDERS: ATTEND Emergency Medicine | DX: R10.30 Lower abdominal pain, unspecified (principal) | CPT/HCPCS: 36415; 80053; 85025 ==

== ENCOUNTER 2018-05-02 15:24 | Outpatient (CLI) | END 2018-05-02 15:25 | disposition home or self-care (01) | LOC: LAB 15:24 | PROVIDERS: ATTEND Emergency Medicine | DX: E78.5 Hyperlipidemia, unspecified (principal); E11.9 Type 2 diabetes mellitus without complications; I10 Essential (primary) hypertension | CPT/HCPCS: 36415; 80053; 80061; 84443; 85025 ==

== ENCOUNTER 2018-11-20 12:36 | Outpatient (CLI) ==
[2018-09-09 19:50] VITALS: BMI 35.6
== END 2018-11-20 12:37 | disposition home or self-care (01) ==
LOC: RHC-LAB 12:36
PROVIDERS: ATTEND Nurse Practitioner Family
DX: I10 Essential (primary) hypertension (principal); E78.5 Hyperlipidemia, unspecified
CPT/HCPCS: 36415; 80053; 80061; 85025

== ENCOUNTER 2018-12-30 11:35 | Outpatient (CLI) ==
[2018-09-09 19:50] VITALS: BMI 35.6
--- NOTE | 2018-12-30 15:27 | DI ---
EXAM: PA and lateral views of the chest HISTORY: Hypertension and short of breath COMPARISON: Chest Xray from 07/30/2017 FINDINGS: There is no interval change. Lungs are clear with no lobar consolidation, failure, large ef fusion or significant atelectasis. There is persistent elevation of the left hemidiaphragm. Cardiac a nd mediastinal silhouettes show no acute abnormality. No acute osseous or soft tissue abnormalities. IMPRESSION: 1. No active disease. 2. Persistent elevation of the left hemidiaphragm
== END 2018-12-30 11:36 | disposition home or self-care (01) ==
LOC: RAD 11:35
PROVIDERS: ATTEND Nurse Practitioner Family
DX: R63.5 Abnormal weight gain (principal); R06.02 Shortness of breath; I10 Essential (primary) hypertension
CPT/HCPCS: 36415; 80053; 83880

== ENCOUNTER 2018-12-30 11:56 | Outpatient (CLI) ==
[2018-09-09 19:50] VITALS: BMI 35.6
== END 2018-12-30 11:57 | disposition home or self-care (01) ==
LOC: RHC-LAB 11:56
PROVIDERS: ATTEND Nurse Practitioner Family
DX: R63.5 Abnormal weight gain (principal); I10 Essential (primary) hypertension; R06.02 Shortness of breath
CPT/HCPCS: 36415; 80053; 83880

== ENCOUNTER 2019-03-06 15:09 | Outpatient (CLI) ==
[2018-09-09 19:50] VITALS: BMI 35.6
== END 2019-03-06 15:10 | disposition home or self-care (01) ==
LOC: RHC-LAB 15:09
PROVIDERS: ATTEND Nurse Practitioner Family
DX: Z11.4 Encounter for screening for human immunodeficiency virus [HIV] (principal)
CPT/HCPCS: 36415; 87389

== ENCOUNTER 2019-05-16 13:11 | Outpatient (CLI) ==
[2018-09-09 19:50] VITALS: BMI 35.6
== END 2019-05-16 13:12 | disposition home or self-care (01) ==
LOC: LAB 13:11
PROVIDERS: ATTEND Nurse Practitioner Family
DX: I10 Essential (primary) hypertension (principal); E78.5 Hyperlipidemia, unspecified
CPT/HCPCS: 36415; 80053; 80061; 84443; 85025

== ENCOUNTER 2019-06-03 13:33 | Outpatient (CLI) ==
[2019-06-03 15:14] VITALS: BMI 36.6
== END 2019-06-03 13:34 | disposition home or self-care (01) ==
LOC: DIETCN 13:33
PROVIDERS: ATTEND Nurse Practitioner Family
DX: E11.9 Type 2 diabetes mellitus without complications (principal); E66.9 Obesity, unspecified

== ENCOUNTER 2022-08-10 10:25 | Inpatient (IN) ==
--- NOTE | 2022-08-10 10:28 | ED.PDOC ---
General ED Provider: Dr. CLARK MONTERROSO MD Chief Complaint: Shortness of Air Stated Complaint: Patient presents with a one week history of dyspnea. He has dyspnea at rest. Denies malaise, fever, chills, cough, chest pain, palpitations, syncope, peripheral edema. He noted his oxygen saturation to be 88% at home earlier today. Patient does have a history of dyspnea and prior respiratory failure as well as a history of CHF. Time Seen by Provider: 08/10/22 10:28 Primary Care Provider: BETHANY MUNIZ APRN Nursing and Triage Documentation Reviewed and Agree: Yes Does patient meet sepsis criteria?: No System Inflammatory Response Syndrome: Not Applicable Sepsis Protocol: For patient's 13 years and over: Temp is 96.8 and below OR 101 and greater Pulse >90 BPM Resp >20/minute Acutely Altered Mental Status Are patient's symptoms suggestive of a new infection, such as: -Pneumonia -Skin, Soft Tissue -Endocarditis -UTI -Bone, Joint Infection -Implantable Device -Acute Abdominal Infection -Wound Infection -Meningitis -Blood Stream Catheter Infection -Unknown Respiratory Complaint Exam Shortness of Air Complaint/Exam Onset/Duration: one week history of dyspnea Symptoms Are: Still present Timing: Constant Initial Severity: Mild Current Severity: Moderate Character: Reports Dyspnea at rest Aggravating: Reports Movement Alleviating: Reports None Associated Signs and Symptoms: Denies Cough, Wheezing, Chest pain with cough, Chest pain, Fever, Chills, Diaphoresis, Nasal congestion, Dizziness, Calf pain, Calf swelling, Edema, Rapid breathing, Labored breathing or Decreased intake Related History: Reports Similar episode History of Healthcare-Acquired Pneumonia: No Pulmonary Embolism Risk Factors: Reports None Cardiac Risk Factors: Reports Diabetes, Hypertension and CHF Pseudomonas Risk Factors: Reports None Tuberculosis Risk Factors: Reports None Home Oxygen Use: No Respiratory Distress: None Stridor Present: No Tracheal Deviation: No Subcutaneous Emphysema: No Accessory Muscle Use: No Retractions: Not Present Diminished Breath Sounds: Yes Prolonged Expiratory Phase: No Unable to Speak Full Sentences: No Fatigue: No Leg Swelling: No Geovanni's Sign Present: No Grunting Respirations: No Kussmaul Respirations: No Review of Systems Review Of Systems Constitutional: Reports No symptoms Eyes: Reports No symptoms Ears, Nose, Mouth, Throat: Reports No symptoms Respiratory: Reports Short of air Cardiac: Reports No symptoms GI: Reports No symptoms : Reports No symptoms Musculoskeletal: Reports No symptoms Skin: Reports No symptoms Neurological: Reports No symptoms Endocrine: Reports No symptoms Hematologic/Lymphatic: Reports No symptoms All Other Systems: Reviewed and Negative [facility] Medical History Anemia Anxiety Asthma Back pain Bronchitis CKD (chronic kidney disease) stage 3, GFR 30-59 ml/min COPD (chronic obstructive pulmonary disease) COVID-19 vaccine series completed Decreased GFR Depression Dermatitis Diabetes Diabetes mellitus Dyslipidemia Dyspnea on exertion Elevated blood pressure reading in office with diagnosis of hypertension Elevated blood sugar Erectile dysfunction Fatigue Glucosuria Hyperkalemia Hyperlipidemia Hypertension Hypertriglyceridemia Intermittent chest pain Iron deficiency anemia Low hemoglobin and low hematocrit Mass of left forearm Migraine Nausea Obesity On supplemental oxygen by nasal cannula Requires assistance with activities of daily living (ADL) Sinusitis Sleep apnea Suicidal ideations Tachycardia Transient ischemia Uncontrolled hypertension Weakness Family History Mother Diabetes Hyperlipidemia FATHER Diabetes Hyperlipidemia Social History Smoking and tobacco status: Former smoker Tobacco: How many years used: 20 Second hand smoke exposure: Yes Alcohol intake: never Substance use type: does not use Katja/samaritan: NONE Special katja needs: No Agree to transfusion: Yes Adopted: No Caregiver/support person: Yes (Mom) Household members: none Housing: apartment Marital status: S SINGLE Lives independently: No Number of children: 0 Highest education level completed: high school graduate Financial difficulty paying for basics: not applicable service: No Current occupational status: unemployed and disabled Current occupational exposures/hazards: No Pets and animals: Yes (puppy) Leisure activites: other History of recent travel: No Do you think of yourself as: straight/heterosexual Current gender identity: male Seatbelt use: always Helmet use: No Drives intoxicated or rides with intoxicated bung driver: No Water heater temperature set < 120 degrees: Yes Working smoke detector in home: Yes Fire extinguisher in home: Yes Carbon monoxide detector in home: Yes Firearms in home: No Surgical History History of vocal cord polypectomy Physical Exam Physical Exam Appearance: Reports Ill-appearing, No pain distress, Well-nourished and Other (Patient appears to be mildly dyspneic.) Ill-appearing: Mild Pain Distress: None Eyes: Reports Not Examined ENT: Reports Nose normal and Oropharynx normal Neck: Supple (No JVD) Respiratory: Reports Airway patent, Breath sounds equal, Breath sounds diminished and Wheezes Cardiovascular: Reports RRR, No rub and No murmur GI/: Reports Soft, Nontender, No masses and Bowel sounds normal Musculoskeletal: Reports Normal strength and No edema Skin: Reports Warm, Dry and Normal color Neurological: Reports Motor intact, Alert and Oriented Psychiatric: Reports Affect appropriate and Mood appropriate Interpretation Radiology Interpretation Radiology Interpretation By: Radiologist Exam Interpreted: Portable CXR (elevation of left hemidiaphragm that is stable with scarring or atelectasis at left base, no acute findings) EKG Interpretation Time of EKG #1: 10:52 Rate: Normal Rhythm: Sinus Ectopy: None [place]: NL ST Segment: Normal Interpretation: normal EKG Re-Evaluation Re-Evaluation Time of Re-Evaluation: 11:54 Status: Improved Vital Signs Stable: Yes Appearance: NAD Lungs: Clear (air exchange improved) Critical Care Note Critical Care Note Total Critical Care Time (mins): 0 Course Course Hematology/Chemistry: 08/10/22 10:48 08/10/22 10:48 Orders, Labs, Meds: Lab Review 08/10/22 08/10/22 08/10/22 10:39 10:43 10:48 WBC 9.38 RBC 4.59 L Hgb 12.5 L Hct 38.5 L MCV 83.9 MCH 27.2 MCHC 32.5 RDW Coeff of Suraj 15.6 H Plt Count 325 Immature Gran % (Auto) 0.4 Neut % (Auto) 51.4 Lymph % (Auto) 29.5 [place] % (Auto) 12.3 H Eos % (Auto) 5.9 Baso % (Auto) 0.5 Neut # (Auto) 4.8 Lymph # (Auto) 2.8 [place] # (Auto) 1.2 Eos # (Auto) 0.6 Baso # (Auto) 0.1 Immature Gran # (Auto) 0.0 Puncture Site Rr Base Excess 9.9 H O2 Saturation 89.7 L ABG pH 7.40 ABG pCO2 56.0 H ABG pO2 58.0 L* ABG HCO3 34.7 H ABG Total CO2 36.4 H Iglesia Test Pos Hemoglobin 1.3 Oxyhemoglobin 88.0 L Carboxyhemoglobin 2.2 H Total Hemoglobin 12.9 FiO2 % 21.0 Sodium Potassium Chloride Carbon Dioxide Anion Gap BUN Creatinine Estimated GFR (MDRD) BUN/Creatinine Ratio Glucose Calcium Total Bilirubin AST ALT Alkaline Phosphatase Troponin I NT-Pro-B Natriuret Pep Total Protein Albumin Globulin Albumin/Globulin Ratio SARS CoV-2 RNA Rapid CASISE Negative 08/10/22 10:48 WBC RBC Hgb Hct MCV MCH MCHC RDW Coeff of Suraj Plt Count Immature Gran % (Auto) Neut % (Auto) Lymph % (Auto) [place] % (Auto) Eos % (Auto) Baso % (Auto) Neut # (Auto) Lymph # (Auto) [place] # (Auto) Eos # (Auto) Baso # (Auto) Immature Gran # (Auto) Puncture Site Base Excess O2 Saturation ABG pH ABG pCO2 ABG pO2 ABG HCO3 ABG Total CO2 Iglesia Test Hemoglobin Oxyhemoglobin Carboxyhemoglobin Total Hemoglobin FiO2 % Sodium 138.3 Potassium 4.85 Chloride 96.2 L Carbon Dioxide 33.4 H Anion Gap 13.55 BUN 15.8 Creatinine 1.40 H Estimated GFR (MDRD) 64.00 BUN/Creatinine Ratio 11.28 Glucose 121.0 H Calcium 9.60 Total Bilirubin 0.40 AST 32.7 ALT 15.2 Alkaline Phosphatase 72.3 Troponin I < 0.012 NT-Pro-B Natriuret Pep 120.000 Total Protein 8.20 Albumin 4.35 Globulin 3.85 Albumin/Globulin Ratio 1.12 SARS CoV-2 RNA Rapid CASSIE Orders Category Date Time Status ABG DRAW REQUEST Stat CARDIO 08/10/22 10:32 Completed EKG-(ED ONLY) Stat CARDIO 08/10/22 10:32 Completed NEBULIZER TREATMENT Stat CARDIO 08/10/22 11:17 Completed ABG COOX Stat LAB 08/10/22 10:39 Completed CBC W/ AUTO DIFF Stat LAB 08/10/22 10:48 Completed CMP [COMPREHENSIVE METABOLIC PANEL] Stat LAB 08/10/22 10:48 Completed COVID [SARS COV-2 RNA RAPID CASSIE] Stat LAB 08/10/22 10:43 Completed NT-PROBNP Stat LAB 08/10/22 10:48 Completed TROPONIN I Stat LAB 08/10/22 10:48 Completed Ipratropium/Albuterol Neb [Duoneb] MEDS 08/10/22 11:17 Discontinued 3 ml NEB ONCE STA Methylprednisolone Sod Succ/Pf [Solu-Medrol 125 mg] MEDS 08/10/22 11:17 Discontinued 125 mg IM ONCE STA CXR [CHEST, 1V AP ONLY] Stat RADS 08/10/22 10:32 Completed Medications Discontinued Medications Generic Name Dose Route Start Last Admin Trade Name [place] PRN Reason Stop Dose Admin Albuterol/Ipratropium 3 ml 08/10/22 11:17 08/10/22 11:45 Ipratropium/Albuterol Vial.Neb NEB 08/10/22 11:18 3 ml ONCE STA Administration Methylprednisolone Sodium Succinate 125 mg 08/10/22 11:17 08/10/22 11:21 Methylprednisolone Sod Succ/Pf 125 Mg/2 Ml Vial IM 08/10/22 11:18 125 mg ONCE STA Administration Vital Signs: Temp Pulse Resp BP Pulse Ox 08/10/22 10:26 96.9 F L 97 18 134/85 88 L Discharge Plan Discharge Patient Disposition: HOME SELF-CARE Discharge Problem: Acute exacerbation of chronic obstructive pulmonary disease Instructions: COPD (Chronic Obstructive Pulmonary Disease) (ED) Prescriptions: New methylprednisolone [Medrol ([place])] 4 mg tablets,dose pack See Rx Instructions .ROUTE .COMPLEX Qty: 21 0RF Rx Instructions: orally per package directions No Action nystatin 100,000 unit/gram cream See Rx Instructions .ROUTE .COMPLEX Qty: 60 0RF Dose Instruction: APPLY TO THE AFFECTED AREA TWICE DAILY NEEDED Rx Instructions: APPLY TO THE AFFECTED AREA TWICE DAILY NEEDED lancets [OneTouch Delica Plus Lancet] 33 gauge misc See Rx Instructions .ROUTE .COMPLEX Qty: 100 2RF Dose Instruction: TEST THREE TIMES DAILY NEEDED Rx Instructions: TEST THREE TIMES DAILY NEEDED albuterol sulfate [ProAir HFA] 90 mcg/actuation HFA aerosol inhaler 2 puff inhalation Q4HR PRN (Reason: Wheezing) Qty: 1 2RF atorvastatin 80 mg tablet See Rx Instructions .ROUTE .COMPLEX Qty: 90 0RF Dose Instruction: TAKE 1 TABLET BY MOUTH EVERY EVENING Rx Instructions: TAKE 1 TABLET BY MOUTH EVERY EVENING metformin 1,000 mg tablet See Rx Instructions .ROUTE .COMPLEX Qty: 180 2RF Dose Instruction: TAKE 1 TABLET BY MOUTH TWICE DAILY Rx Instructions: TAKE 1 TABLET BY MOUTH TWICE DAILY (DME) Blood Glucose Test Strip See Rx Instructions .ROUTE .MEDSUPPLY Qty: 100 6RF Rx Instructions: test twice per day and as needed. Belsomra 20 mg tablet 20 mg PO ONCE Qty: 30 1RF sertraline 100 mg tablet 350 mg PO QDAY Qty: 105 1RF buspirone 30 mg tablet 30 mg PO TID Qty: 90 2RF quetiapine 100 mg tablet 100 mg PO QHS Qty: 30 1RF divalproex 500 mg tablet,delayed release (DR/EC) See Rx Instructions .ROUTE .COMPLEX Qty: 180 0RF Dose Instruction: TAKE 1 TABLET BY MOUTH TWICE DAILY Rx Instructions: TAKE 1 TABLET BY MOUTH TWICE DAILY propranolol 80 mg capsule,extended release 24 hr See Rx Instructions .ROUTE .COMPLEX Qty: 180 0RF Dose Instruction: TAKE 1 CAPSULE BY MOUTH TWICE DAILY Rx Instructions: TAKE 1 CAPSULE BY MOUTH TWICE DAILY Trulicity 1.5 mg/0.5 mL pen injector See Rx Instructions .ROUTE .COMPLEX Qty: 2 1RF Dose Instruction: ADMINISTER 1.5 MG UNDER THE SKIN EVERY WEEK Rx Instructions: ADMINISTER 1.5 MG UNDER THE SKIN EVERY WEEK amlodipine 10 mg tablet See Rx Instructions .ROUTE .COMPLEX Qty: 90 1RF Dose Instruction: TAKE ONE TABLET BY MOUTH DAILY Rx Instructions: TAKE ONE TABLET BY MOUTH DAILY Spravato 84 mg (28 mg x 3) spray,non-aerosol 84 mg intranasal QWEEK Qty: 6 5RF aspirin 81 MG tablet,chewable 81 mg PO DAILYWM Qty: 120 0RF Rx Instructions: NO PRESCRIPTION. OVER THE COUNTER (DME) blood-glucose meter Misc See Rx Instructions .ROUTE .MEDSUPPLY Qty: 1 0RF Rx Instructions: As directed Ubrelvy 100 mg tablet 100 mg PO ONCE Qty: 30 0RF Rx Instructions: as a single dose; may repeat once in >=2 hours after first dose if needed Dr facundo Castellon 1.5 mg/0.5 mL pen injector 1.5 mg subcut QWEEK Jardiance 25 mg tablet 25 mg PO QAM Qty: 90 1RF gabapentin 400 mg capsule 400 mg PO TID Qty: 90 2RF Did you review [place] CROSS CUT SAW OPERATOR?: Not Applicable Discussed opioids are addictive and Narcan is available by prescription or from pharmacy.: No Activity Restrictions/Additional Instructions: Take the medrol dose albino as directed. Follow up with your primary care provider within one week. ED Provider: CLARK MONTERROSO Condition: Stable Physician Progress Note: []
[2022-08-10 10:44] LABS: BEecf 9.9 (-2.0-3.0); COHb 2.2 (0.5-1.5); HCO3 34.7 (21-28); MetHb 1.3 (0-1.5); TCO2 36.4 (19-24); sO2 89.7 % (94-98); tHb 12.9 g/dl (11.7-17.4)
[2022-08-10 10:52] LABS: BASOPHILS # (AUTO) 0.1 K/uL (0-0.2); BASOPHILS % (AUTO) 0.5 % (0.0-3.0); EOSINOPHILS # (AUTO) 0.6 K/ul (0.0-0.7); EOSINOPHILS % (AUTO) 5.9 % (0.0-7.0); HEMATOCRIT 38.5 % (42.0-52.0); HEMOGLOBIN 12.5 g/dl (14.0-18.0); IMMATURE GRANULOCYTE % (AUTO) 0.4 % (0.0-5.0); LYMPHOCYTES # (AUTO) 2.8 K/uL (0.60-3.4); LYMPHOCYTES % (AUTO) 29.5 (10.0-50.0); MEAN CORPUSCULAR HEMOGLOBIN 27.2 pg (27.0-31.0); MEAN CORPUSCULAR HGB CONC 32.5 (31.8-35.4); MEAN CORPUSCULAR VOLUME 83.9 fl (80.0-94.0); MONOCYTES # (AUTO) 1.2 K/uL (0.4-2.0); MONOCYTES % (AUTO) 12.3 (0-10); NEUTROPHILS # (AUTO) 4.8 K/ul (2.0-6.9); NEUTROPHILS % (AUTO) 51.4 % (42.2-75.2); PLATELET COUNT 325 10^3/uL (140-440); RDW COEFFICIENT OF VARIATION 15.6 % (11.6-14.8); RED BLOOD COUNT 4.59 10^6/ul (4.70-6.10); WHITE BLOOD COUNT 9.38 K/ul (4.2-10.2)
[2022-08-10 11:08] LABS: ALANINE AMINOTRANSFERASE 15.2 U/L (0-50); ALBUMIN 4.35 g/dL (3.5-5.0); ALKALINE PHOSPHATASE 72.3 U/L (38-126); ASPARTATE AMINO TRANSFERASE 32.7 U/L (17-59); BLOOD UREA NITROGEN 15.8 mg/dL (9-20); CARBON DIOXIDE 33.4 mmol/L (22-30.0); CHLORIDE 96.2 mmol/L (98-107); POTASSIUM 4.85 mmol/L (3.5-5.1); SODIUM 138.3 mmol/L (134.5-145)
[2022-08-10] MEDS ORDERED: SOLU-MEDROL 125 MG IM STA (11:17)
[2022-08-10] MEDS ORDERED: DUONEB NEB STA ×2 (11:17→12:19)
[2022-08-10 11:28] LABS: TROPONIN I < 0.012 ng/ml (0.0000-0.120)
--- NOTE | 2022-08-10 11:48 | DI ---
EXAM: Chest one view HISTORY: Dyspnea COMPARISON: 07/28/2020 TECHNIQUE: Single view of the chest was performed FINDINGS: Similar elevation of the left hemidiaphragm with adjacent atelectasis and/or scarring. No definite consolidation. There is no pleural effusion or pneumothorax. The heart is normal in size. The mediastinal contour is normal. There are no acute abnormalities of the bones. IMPRESSION: Similar elevation of the left hemidiaphragm with adjacent subsegmental atelectasis and/o r scarring. No definite consolidation.
[2022-08-10] MEDS ORDERED: TYLENOL PO PRN (13:01)
--- NOTE | 2022-08-10 13:52 | PCM ---
Chief Complaint Chief Complaint: dyspnea History of Present Illness History of Present Illness: Patient presents with a one week history of dyspnea. He currently has dyspnea at rest. Denies fever, chills, chest pain, orthopnea, PND, palpitations, edema, syncope or cough. He does have a history of COPD and CHF. Patient reports that he has not been using his albuterol inhaler recently. He noted his oxygen saturation to be 88% just prior to presentation. Review of Systems Constitutional: Reports No symptoms Eyes: Reports No symptoms Ears: Reports No symptoms Nose: Reports No symptoms Throat: Reports No symptoms Mouth: Reports No symptoms Respiratory: Reports Shortness of air Cardiovascular: Reports No symptoms Gastrointestinal: Reports No symptoms Genitourinary: Reports No symptoms Neurological: Reports No symptoms Musculoskeletal: Reports No symptoms Skin: Reports No symptoms Immunology: Reports No symptoms Hematology: Reports No symptoms Endocrine: Reports No symptoms Psychiatric: Reports No symptoms Allergies Allergies Allergy/AdvReac Type Severity Reaction Status Date / Time lactose Allergy Nausea Verified 08/10/22 10:38 Penicillins AdvReac Rash Verified 08/10/22 10:38 eggs Allergy Severe n/v Uncoded 08/10/22 09:47 PFSH Medical History Anemia Anxiety Asthma Back pain Bronchitis CKD (chronic kidney disease) stage 3, GFR 30-59 ml/min COPD (chronic obstructive pulmonary disease) COVID-19 vaccine series completed Decreased GFR Depression Dermatitis Diabetes Diabetes mellitus Dyslipidemia Dyspnea on exertion Elevated blood pressure reading in office with diagnosis of hypertension Elevated blood sugar Erectile dysfunction Fatigue Glucosuria Hyperkalemia Hyperlipidemia Hypertension Hypertriglyceridemia Intermittent chest pain Iron deficiency anemia Low hemoglobin and low hematocrit Mass of left forearm Migraine Nausea Obesity On supplemental oxygen by nasal cannula Requires assistance with activities of daily living (ADL) Sinusitis Sleep apnea Suicidal ideations Tachycardia Transient ischemia Uncontrolled hypertension Weakness Surgical History History of vocal cord polypectomy Family History Mother Diabetes Hyperlipidemia FATHER Diabetes Hyperlipidemia Social History Smoking and tobacco status: Former smoker Tobacco: How many years used: 20 Second hand smoke exposure: Yes Alcohol intake: never Substance use type: does not use Katja/yarsani: NONE Special katja needs: No Agree to transfusion: Yes Adopted: No Caregiver/support person: Yes (Mom) Household members: none Housing: apartment Marital status: S SINGLE Lives independently: No Number of children: 0 Highest education level completed: high school graduate Financial difficulty paying for basics: not applicable service: No Current occupational status: unemployed and disabled Current occupational exposures/hazards: No Pets and animals: Yes (puppy) Leisure activites: other History of recent travel: No Do you think of yourself as: straight/heterosexual Current gender identity: male Seatbelt use: always Helmet use: No Drives intoxicated or rides with intoxicated mail truck driver: No Water heater temperature set < 120 degrees: Yes Working smoke detector in home: Yes Fire extinguisher in home: Yes Carbon monoxide detector in home: Yes Firearms in home: No Medications Medications: Medications Generic Name Dose Route Start Last Admin Trade Name Freq PRN Reason Stop Dose Admin Acetaminophen 650 mg 08/10/22 13:01 Acetaminophen 325 Mg Tablet PO Q4H PRN Mild Pain Albuterol/Ipratropium 3 ml 08/10/22 14:00 Ipratropium/Albuterol Vial.Neb NEB RTQ4H BRODERICK Methylprednisolone Sodium Succinate 125 mg 08/10/22 21:00 Methylprednisolone Sod Succ/Pf 125 Mg/2 Ml Vial IVP Q12HR BRODERICK Body Composition Height: 6 ft 1 in Weight: 127.006 kg Body Mass Index (BMI): 36.9 Vital Signs Temperature: 96.9 F Pulse Rate: 97 Respiratory Rate: 18 Blood Pressure: 134/85 O2 Sat by Pulse Oximetry: 88 Physical Examination Appearance: Reports Ill-appearing, No pain distress, Well-nourished and Other (Patient is mildly tachypneic.) Ill-appearing: Mild Pain Distress: None Eyes: Reports TREY and EOMI ENT: Reports Nose normal and Oropharynx normal Neck: Supple Respiratory: Reports Airway patent, Breath sounds equal, Breath sounds diminished and Wheezes Cardiovascular: Reports RRR, No rub, No murmur and Other (no edema) GI/: Reports Soft, Nontender, No masses and Bowel sounds normal Musculoskeletal: Reports Normal strength, ROM intact and No edema Skin: Reports Warm, Dry and Normal color Neurological: Reports Sensation intact, Motor intact, Alert and Oriented Psychiatric: Reports Affect appropriate and Mood appropriate Lab/Tests/Diagnostic Imaging Lab/Tests/Diagnostic Imaging: Lab Review 08/10/22 08/10/22 08/10/22 10:39 10:43 10:48 WBC 9.38 RBC 4.59 L Hgb 12.5 L Hct 38.5 L MCV 83.9 MCH 27.2 MCHC 32.5 RDW Coeff of Suraj 15.6 H Plt Count 325 Immature Gran % (Auto) 0.4 Neut % (Auto) 51.4 Lymph % (Auto) 29.5 [place] % (Auto) 12.3 H Eos % (Auto) 5.9 Baso % (Auto) 0.5 Neut # (Auto) 4.8 Lymph # (Auto) 2.8 [place] # (Auto) 1.2 Eos # (Auto) 0.6 Baso # (Auto) 0.1 Immature Gran # (Auto) 0.0 Puncture Site Rr Base Excess 9.9 H O2 Saturation 89.7 L ABG pH 7.40 ABG pCO2 56.0 H ABG pO2 58.0 L* ABG HCO3 34.7 H ABG Total CO2 36.4 H Iglesia Test Pos Hemoglobin 1.3 Oxyhemoglobin 88.0 L Carboxyhemoglobin 2.2 H Total Hemoglobin 12.9 FiO2 % 21.0 Sodium Potassium Chloride Carbon Dioxide Anion Gap BUN Creatinine Estimated GFR (MDRD) BUN/Creatinine Ratio Glucose Calcium Total Bilirubin AST ALT Alkaline Phosphatase Troponin I NT-Pro-B Natriuret Pep Total Protein Albumin Globulin Albumin/Globulin Ratio SARS CoV-2 RNA Rapid CASSIE Negative 08/10/22 10:48 WBC RBC Hgb Hct MCV MCH MCHC RDW Coeff of Suraj Plt Count Immature Gran % (Auto) Neut % (Auto) Lymph % (Auto) [place] % (Auto) Eos % (Auto) Baso % (Auto) Neut # (Auto) Lymph # (Auto) [place] # (Auto) Eos # (Auto) Baso # (Auto) Immature Gran # (Auto) Puncture Site Base Excess O2 Saturation ABG pH ABG pCO2 ABG pO2 ABG HCO3 ABG Total CO2 Iglesia Test Hemoglobin Oxyhemoglobin Carboxyhemoglobin Total Hemoglobin FiO2 % Sodium 138.3 Potassium 4.85 Chloride 96.2 L Carbon Dioxide 33.4 H Anion Gap 13.55 BUN 15.8 Creatinine 1.40 H Estimated GFR (MDRD) 64.00 BUN/Creatinine Ratio 11.28 Glucose 121.0 H Calcium 9.60 Total Bilirubin 0.40 AST 32.7 ALT 15.2 Alkaline Phosphatase 72.3 Troponin I < 0.012 NT-Pro-B Natriuret Pep 120.000 Total Protein 8.20 Albumin 4.35 Globulin 3.85 Albumin/Globulin Ratio 1.12 SARS CoV-2 RNA Rapid CASSIE Orders Category Date Time Status ADMIT PATIENT INPATIENT .TO MEDSURG (NON-MONITORED ADMISSION 08/10/22 13:01 Active BED) ABG DRAW REQUEST Stat CARDIO 08/10/22 10:32 Completed EKG-(ED ONLY) Stat CARDIO 08/10/22 10:32 Completed NEBULIZER TREATMENT Routine CARDIO 08/10/22 13:06 Ordered NEBULIZER TREATMENT Stat CARDIO 08/10/22 11:17 Completed NEBULIZER TREATMENT Stat CARDIO 08/10/22 12:19 Completed OXYGEN Routine CARDIO 08/10/22 13:01 Ordered ACTIVITY .Up ad Haley CARE 08/10/22 13:01 Active BLOOD GLUCOSE MONITORING (MED/SURG) 0630,1100,1700,2100 CARE 08/10/22 13:03 Active GIVE HS SNACK 2100 CARE 08/10/22 13:03 Active INTAKE & OUTPUT Q8HR CARE 08/10/22 13:01 Active IP: INSERT SALINE LOCK ONCE CARE 08/10/22 13:01 Active Notify RT of Treatment ONCE CARE 08/10/22 13:06 Active REMINDER: Give Insulin if Needed 0630,1100,1700,2100 CARE 08/10/22 13:01 Active VITAL SIGNS Q8HR CARE 08/10/22 13:01 Active ADA 1800 RACHEL. DIET DIETARY 08/10/22 Lunch Ordered HS SNACK DIETARY 08/10/22 Dinner Ordered ABG COOX Stat LAB 08/10/22 10:39 Completed CBC W/ AUTO DIFF DAILY@0600 LAB 08/11/22 06:00 Ordered CBC W/ AUTO DIFF DAILY@0600 LAB 08/12/22 06:00 Ordered CBC W/ AUTO DIFF Stat LAB 08/10/22 10:48 Completed CMP [COMPREHENSIVE METABOLIC PANEL] Stat LAB 08/10/22 10:48 Completed COMPREHENSIVE METABOLIC PANEL DAILY@0600 LAB 08/11/22 06:00 Ordered COMPREHENSIVE METABOLIC PANEL DAILY@0600 LAB 08/12/22 06:00 Ordered COVID [SARS COV-2 RNA RAPID CASSIE] Stat LAB 08/10/22 10:43 Completed NT-PROBNP Stat LAB 08/10/22 10:48 Completed TROPONIN I Stat LAB 08/10/22 10:48 Completed Acetaminophen [Tylenol] MEDS 08/10/22 13:01 Active 650 mg PO Q4H PRN Ipratropium/Albuterol Neb [Duoneb] MEDS 08/10/22 11:17 Discontinued 3 ml NEB ONCE STA Ipratropium/Albuterol Neb [Duoneb] MEDS 08/10/22 12:19 Discontinued 3 ml NEB ONCE STA Ipratropium/Albuterol Neb [Duoneb] MEDS 08/10/22 14:00 Active 3 ml NEB RTQ4H Methylprednisolone Sod Succ/Pf [Solu-Medrol 125 mg] MEDS 08/10/22 11:17 Discontinued 125 mg IM ONCE STA Methylprednisolone Sod Succ/Pf [Solu-Medrol 125 mg] MEDS 08/10/22 21:00 Active 125 mg IVP Q12HR RESUSCITATION STATUS Routine OTHERS 08/10/22 13:01 Ordered CXR [CHEST, 1V AP ONLY] Stat RADS 08/10/22 10:32 Completed CXR [CHEST, 1V AP ONLY] Timed RADS 08/11/22 06:01 Ordered Medications Generic Name Dose Route Start Last Admin Trade Name Freq PRN Reason Stop Dose Admin Acetaminophen 650 mg 08/10/22 13:01 Acetaminophen 325 Mg Tablet PO Q4H PRN Mild Pain Albuterol/Ipratropium 3 ml 08/10/22 14:00 Ipratropium/Albuterol Vial.Neb NEB RTQ4H BRODERICK Methylprednisolone Sodium Succinate 125 mg 08/10/22 21:00 Methylprednisolone Sod Succ/Pf 125 Mg/2 Ml Vial IVP Q12HR BRODERICK Discontinued Medications Generic Name Dose Route Start Last Admin Trade Name Freq PRN Reason Stop Dose Admin Albuterol/Ipratropium 3 ml 08/10/22 11:17 08/10/22 11:45 Ipratropium/Albuterol Vial.Neb NEB 08/10/22 11:18 3 ml ONCE STA Administration Albuterol/Ipratropium 3 ml 08/10/22 12:19 08/10/22 12:25 Ipratropium/Albuterol Vial.Neb NEB 08/10/22 12:20 3 ml ONCE STA Administration Methylprednisolone Sodium Succinate 125 mg 08/10/22 11:17 08/10/22 11:21 Methylprednisolone Sod Succ/Pf 125 Mg/2 Ml Vial IM 08/10/22 11:18 125 mg ONCE STA Administration Assessment (1) Acute exacerbation of chronic obstructive pulmonary disease: Status: Acute Code(s): J44.1 - Chronic obstructive pulmonary disease with (acute) exacerbation SNOMED Code(s): 019255364 (2) Hypoxemia requiring supplemental oxygen: Status: Acute Code(s): R09.02 - Hypoxemia; Z99.81 - Dependence on supplemental oxygen SNOMED Code(s): 449107189 Plan Plan: Plan IV steroids and nebulizer treatments. He will also receive supplemental oxygen.
[2022-08-10] MEDS: DUONEB NEB SCH ×3 (14:21→21:02)
[2022-08-10 15:35] VITALS: BMI 37.2
[2022-08-10] MEDS ORDERED: VENTOLIN HFA (PER PUFF-WITH SPACER) IH PRN (16:18)
[2022-08-10] MEDS ORDERED: NON-FORMULARY MEDICATION (Gabapentin 400 mg capsule) PO SCH (16:18)
[2022-08-10] MEDS: HUMULIN R SUBCUT PRN ×2 (17:19→20:50)
[2022-08-10] MEDS: GLUCOPHAGE PO SCH (17:20)
[2022-08-10] MEDS: BUSPAR PO SCH ×2 (17:20→20:52)
[2022-08-10] MEDS: ZOLOFT PO SCH ×2 (17:20→20:53)
[2022-08-10] MEDS: LIPITOR PO SCH (20:52)
[2022-08-10] MEDS: INDERAL PO SCH (20:53)
[2022-08-10] MEDS: NEURONTIN PO SCH ×2 (20:53)
[2022-08-10] MEDS: DEPAKOTE PO SCH (20:53)
[2022-08-10] MEDS: SEROQUEL PO SCH (20:53)
[2022-08-10] MEDS: SUVOREXANT 20 MG PO SCH (21:00)
[2022-08-10] MEDS ORDERED: PROPRANOLOL 80 MG PO SCH (21:00)
[2022-08-10] MEDS: SOLU-MEDROL 125 MG IVP SCH (21:56)
[2022-08-11] MEDS: DUONEB NEB SCH ×5 (01:03→19:50)
[2022-08-11 05:20] LABS: BASOPHILS % (AUTO) 0.1 % (0.0-3.0); HEMATOCRIT 38.5 % (42.0-52.0); HEMOGLOBIN 12.4 g/dl (14.0-18.0); IMMATURE GRANULOCYTE % (AUTO) 0.2 % (0.0-5.0); LYMPHOCYTES # (AUTO) 1.4 K/uL (0.60-3.4); LYMPHOCYTES % (AUTO) 15.7 (10.0-50.0); MEAN CORPUSCULAR HEMOGLOBIN 27.1 pg (27.0-31.0); MEAN CORPUSCULAR HGB CONC 32.2 (31.8-35.4); MEAN CORPUSCULAR VOLUME 84.2 fl (80.0-94.0); MONOCYTES # (AUTO) 0.2 K/uL (0.4-2.0); MONOCYTES % (AUTO) 2.3 (0-10); NEUTROPHILS # (AUTO) 7.2 K/ul (2.0-6.9); NEUTROPHILS % (AUTO) 81.7 % (42.2-75.2); PLATELET COUNT 315 10^3/uL (140-440); RDW COEFFICIENT OF VARIATION 15.8 % (11.6-14.8); RED BLOOD COUNT 4.57 10^6/ul (4.70-6.10); WHITE BLOOD COUNT 8.75 K/ul (4.2-10.2)
[2022-08-11 05:36] LABS: ALANINE AMINOTRANSFERASE 17.2 U/L (0-50); ALBUMIN 4.28 g/dL (3.5-5.0); ALKALINE PHOSPHATASE 67.7 U/L (38-126); ASPARTATE AMINO TRANSFERASE 29.6 U/L (17-59); BILIRUBIN,TOTAL 0.42 mg/dL (0.2-1.3); BLOOD UREA NITROGEN 20.9 mg/dL (9-20); CALCIUM 9.39 mg/dL (8.4-10.2); CARBON DIOXIDE 32.1 mmol/L (22-30.0); CHLORIDE 98.9 mmol/L (98-107); CREATININE 1.23 mg/dL (0.60-1.10); GLUCOSE 174.7 mg/dL (74-106); POTASSIUM 5.23 mmol/L (3.5-5.1); SODIUM 139.1 mmol/L (134.5-145); TOTAL PROTEIN 8.06 g/dL (6.3-8.2)
[2022-08-11] MEDS: HUMULIN R SUBCUT PRN ×4 (05:59→20:23)
[2022-08-11] MEDS: SOLU-MEDROL 125 MG IVP SCH (08:21)
[2022-08-11] MEDS: JARDIANCE PO SCH (08:24)
[2022-08-11] MEDS: ASPIRIN CHEWABLE PO SCH (08:25)
[2022-08-11] MEDS: ZOLOFT PO SCH ×3 (08:26→20:30)
[2022-08-11] MEDS: DEPAKOTE PO SCH ×2 (08:26→20:29)
[2022-08-11] MEDS: BUSPAR PO SCH ×3 (08:27→20:30)
[2022-08-11] MEDS: NEURONTIN PO SCH ×6 (08:28→20:30)
[2022-08-11] MEDS: NORVASC PO SCH (08:30)
[2022-08-11] MEDS: GLUCOPHAGE PO SCH ×2 (08:30→18:01)
[2022-08-11] MEDS: INDERAL PO SCH ×2 (08:40→20:29)
[2022-08-11] MEDS ORDERED: DUONEB NEB PRN (12:09)
[2022-08-11] MEDS: ROCEPHIN 1 GM/50 ML D5W 1 GM/50 ML BAG IV SCH (12:37)
--- NOTE | 2022-08-11 13:37 | DI ---
EXAM: Chest one view HISTORY: Dyspnea COMPARISON: 08/10/2022 TECHNIQUE: Single view of the chest was performed FINDINGS: Elevation of the left hemidiaphragm. Mild bibasilar atelectasis and/or consolidation. Lo w lung volumes. No visible pneumothorax. No large pleural effusion. Heart normal in size. Mediast inal contour unchanged. IMPRESSION: Mild bibasilar atelectasis and/or pneumonia.
--- NOTE | 2022-08-11 16:05 | PCM.PROG ---
Date Seen by Provider: 08/11/22 Time Seen by Provider: 10:00 Subjective: CC - Shortness of breath better. Admit - 08/10/2022 Objective: Vitals: T=97.7 F, P=89, R=20, SR=840/74, SPO2=95 HEENT: [wnl] Neck: [supple] Lungs: [Few rhonchi, overall clearing] CVS: [RRR] Abdomen: [soft] Extremities: [intact] Neurological: [intact] Skin: [WNL] Lab/Tests/Diagnostic Imaging: [See labs.] (1) Acute exacerbation of chronic obstructive pulmonary disease: Status: Acute Code(s): J44.1 - Chronic obstructive pulmonary disease with (acute) exacerbation SNOMED Code(s): 623528099 Assessment: Clinically improved. Taper steroids. Rocephin. Duoneb prn. (2) Hypoxemia requiring supplemental oxygen: Status: Acute Code(s): R09.02 - Hypoxemia; Z99.81 - Dependence on supplemental oxygen SNOMED Code(s): 633483389 Assessment: Sat's good on 2 L, he has home oxygen he uses at home at 2L prn. Plan: COPD exac - improving. Patient would like to stay one more day. When goes home, he will need nebules for his nebulizer and an albuterol MDI.
[2022-08-11] MEDS: SOLU-MEDROL 40 MG IVP SCH (20:27)
[2022-08-11] MEDS: LIPITOR PO SCH (20:30)
[2022-08-11] MEDS: SEROQUEL PO SCH (20:30)
[2022-08-11] MEDS: SUVOREXANT 20 MG PO SCH (20:37)
[2022-08-11 21:03] VITALS: TEMP 97.5
[2022-08-12] MEDS: DUONEB NEB SCH ×2 (04:55→09:40)
[2022-08-12 05:15] LABS: BASOPHILS % (AUTO) 0.2 % (0.0-3.0); HEMATOCRIT 38.5 % (42.0-52.0); HEMOGLOBIN 12.4 g/dl (14.0-18.0); IMMATURE GRANULOCYTE # (AUTO) 0.1 (0.0-1.0); IMMATURE GRANULOCYTE % (AUTO) 0.4 % (0.0-5.0); LYMPHOCYTES # (AUTO) 1.8 K/uL (0.60-3.4); LYMPHOCYTES % (AUTO) 13.8 (10.0-50.0); MEAN CORPUSCULAR HGB CONC 32.2 (31.8-35.4); MEAN CORPUSCULAR VOLUME 83.7 fl (80.0-94.0); MONOCYTES # (AUTO) 0.7 K/uL (0.4-2.0); MONOCYTES % (AUTO) 5.6 (0-10); NEUTROPHILS # (AUTO) 10.2 K/ul (2.0-6.9); PLATELET COUNT 312 10^3/uL (140-440); RDW COEFFICIENT OF VARIATION 15.5 % (11.6-14.8); WHITE BLOOD COUNT 12.78 K/ul (4.2-10.2)
[2022-08-12 05:25] LABS: ALANINE AMINOTRANSFERASE 15.2 U/L (0-50); ALBUMIN 4.19 g/dL (3.5-5.0); ALKALINE PHOSPHATASE 58.2 U/L (38-126); ASPARTATE AMINO TRANSFERASE 25.2 U/L (17-59); BILIRUBIN,TOTAL 0.38 mg/dL (0.2-1.3); BLOOD UREA NITROGEN 27.7 mg/dL (9-20); CALCIUM 9.49 mg/dL (8.4-10.2); CARBON DIOXIDE 30.2 mmol/L (22-30.0); CHLORIDE 99.3 mmol/L (98-107); CREATININE 1.25 mg/dL (0.60-1.10); GLUCOSE 140.6 mg/dL (74-106); POTASSIUM 4.81 mmol/L (3.5-5.1); SODIUM 141.5 mmol/L (134.5-145); TOTAL PROTEIN 7.65 g/dL (6.3-8.2)
[2022-08-12 05:26] VITALS: BP 127/81
[2022-08-12] MEDS: ROCEPHIN 1 GM/50 ML D5W 1 GM/50 ML BAG IV SCH (08:35)
[2022-08-12] MEDS: JARDIANCE PO SCH (08:35)
[2022-08-12] MEDS: ASPIRIN CHEWABLE PO SCH (08:35)
[2022-08-12] MEDS: NEURONTIN PO SCH ×2 (08:35)
[2022-08-12] MEDS: DEPAKOTE PO SCH (08:35)
[2022-08-12] MEDS: INDERAL PO SCH (08:36)
[2022-08-12] MEDS: GLUCOPHAGE PO SCH (08:36)
[2022-08-12] MEDS: NORVASC PO SCH (08:36)
[2022-08-12] MEDS: BUSPAR PO SCH (08:36)
[2022-08-12] MEDS: ZOLOFT PO SCH (08:36)
[2022-08-12] MEDS: SOLU-MEDROL 40 MG IVP SCH (09:45)
--- NOTE | 2022-08-12 10:35 | PCM.PROG ---
Date Seen by Provider: 08/12/22 Time Seen by Provider: 10:00 Subjective: Patient denies dyspnea or chest pain. He has no complaints. Asking to go home. Objective: Vitals: T=97.5 F, P=89, R=18, BM=669/81, SPO2=93 Patient alert and in NAD. Breathing without any distress. HEENT: [] Neck: []No JVD Lungs: [] Lungs clear. Air exchange much improved. CVS: []RRR Abdomen: [] Extremities: []No edema Neurological: [] Skin: [] Lab/Tests/Diagnostic Imaging: [] (1) Acute exacerbation of chronic obstructive pulmonary disease: Status: Acute Code(s): J44.1 - Chronic obstructive pulmonary disease with (acute) exacerbation SNOMED Code(s): 416515276 Assessment: Patient much improved. (2) Hypoxemia requiring supplemental oxygen: Status: Acute Code(s): R09.02 - Hypoxemia; Z99.81 - Dependence on supplemental oxygen SNOMED Code(s): 142697573 Plan: Will discharge with a medrol dose filiberto. Patient instructed to use his albuterol inhaler as prescribed. Follow up with your primary care provider next week. Use your home oxygen as needed.
--- NOTE | 2022-08-12 10:51 | PCM.DC ---
Final Diagnosis: acute exacerbation COPD hypoxia Physical Exam Appearance: Well-appearing, Well-nourished and Other (Patient is breathing without any distress. Alert and in NAD.) Ill-appearing: None Pain Distress: None Eyes: Not Examined ENT: Nose normal and Oropharynx normal Neck: Supple Respiratory: Airway patent, Breath sounds clear and Breath sounds equal Cardiovascular: RRR, No rub and No murmur GI/: Soft, Nontender, No masses and Bowel sounds normal Musculoskeletal: Normal strength and No edema Skin: Warm, Dry and Normal color Neurological: Sensation intact, Motor intact, Alert and Oriented Psychiatric: Affect appropriate and Mood appropriate (1) Acute exacerbation of chronic obstructive pulmonary disease: Status: Acute Code(s): J44.1 - Chronic obstructive pulmonary disease with (acute) exacerbation SNOMED Code(s): 826549607 (2) Hypoxemia requiring supplemental oxygen: Status: Acute Code(s): R09.02 - Hypoxemia; Z99.81 - Dependence on supplemental oxygen SNOMED Code(s): 792551548 Reason for Hospitalization: acute exacerbation COPD and hypoxia Prognosis/Condition at Discharge: condition at discharge was stable Medications at Discharge: Patient discharged on the same medications as he was taking at admission plus medrol dose filiberto. Education Provided to Patient and Family: COPD Follow-ups: contact your primary care provider for follow up next week. Discharge Disposition: Home Hospital Course: Patient was admitted with acute exacerbation of COPD that required supplemental oxygen. He received IV steroids and nebulizer treatments. Patient improved clinically and was discharged in stable condition. Plan: Use your albuterol inhaler as directed and take the medrol dose filiberto as directed. Follow up with your primary care provider within one week.
[2022-08-12] MEDS: HUMULIN R SUBCUT PRN (12:03)
== END 2022-08-12 12:41 | disposition home or self-care (01) | DRG 191 ==
LOC: ED 10:25 → MEDSURG A 12:58
PROVIDERS: ADMIT Surgery; ATTEND Surgery
DX: I13.0 Hypertensive heart and chronic kidney disease with heart failure and stage 1 through stage 4 chronic kidney disease, or unspecified chronic kidney disease; J40 Bronchitis, not specified as acute or chronic; Z20.822 Contact with and (suspected) exposure to COVID-19; Z99.81 Dependence on supplemental oxygen; Z79.899 Other long term (current) drug therapy; E11.22 Type 2 diabetes mellitus with diabetic chronic kidney disease; R06.02 Shortness of breath; R09.02 Hypoxemia; D64.9 Anemia, unspecified; I50.20 Unspecified systolic (congestive) heart failure; Z51.81 Encounter for therapeutic drug level monitoring; Z79.84 Long term (current) use of oral hypoglycemic drugs; N18.30 Chronic kidney disease, stage 3 unspecified; J44.1 Chronic obstructive pulmonary disease with (acute) exacerbation; I11.0 Hypertensive heart disease with heart failure; E78.5 Hyperlipidemia, unspecified